=== PATIENT | male | born 1990 | race American Indian/Alaskan Native ===

== ENCOUNTER 2017-05-18 07:17 | Emergency (ER) | payer MEDICAID ==
[2017-05-18 08:21] LABS: Basophils % (Auto) 0.4 % (0.0-1.8); Eosinophils % (Auto) 0.7 % (0.0-4.3); Hematocrit 41.4 % (35.5-45.6); Hemoglobin 13.6 gm/dl (11.8-15.2); Lymphocytes # (Auto) 1.7 K/mm3 (1.2-5.4); Lymphocytes % (Auto) 28.1 % (13.4-35.0); Mean Corpuscular HGB Conc 33 % (32-34); Mean Corpuscular Hemoglobin 29 pg (28-32); Mean Corpuscular Volume 90 fl (84-94); Monocytes # (Auto) 0.3 K/mm3 (0.0-0.8); Monocytes % (Auto) 5.5 % (0.0-7.3); Platelet Count 197 K/mm3 (140-440); Red Blood Count 4.62 M/mm3 (3.65-5.03)
[2017-05-18 08:32] LABS: BUN/Creatinine Ratio 13; Blood Urea Nitrogen 14 mg/dL (9-20); Hemolysis Index 5
[2017-05-18 08:38] LABS: Bilirubin,Urine NEG (Negative); Blood,Urine NEG (Negative); Calcium Oxalate Crystals,Urine 3+; Color,Urine Yellow (Yellow); Mucus,Urine 2+ /HPF; Urobilinogen,Urine < 2.0 mg/dL (<2.0)
[2017-05-18 10:31] LABS: Amphetamine Screen,Urine PRESUMPTIVE NEGATIVE; Benzodiazepines Screen,Urine PRESUMPTIVE NEGATIVE; Methadone Screen,Urine PRESUMPTIVE NEGATIVE; Opiate Screen,Urine PRESUMPTIVE NEGATIVE
[2017-05-18 10:44] LABS: Cannabinoid Screen,Urine PRESUMPTIVE POSITIVE; Cocaine Screen,Urine PRESUMPTIVE POSITIVE
--- NOTE | 2017-05-18 13:23 | Emergency Department Report ---
ED Psych HPI - General Chief Complaint: Medical Clearance Stated Complaint: SUICIDAL Time Seen by Provider: 05/18/17 08:43 Source: patient Mode of arrival: Ambulatory Limitations: No Limitations - History of Present Illness Initial Comments: 27-year-old male with a past medical history of drug abuse, schizophrenia, bipolar, asthma, and HIV presents to the hospital with suicidal and homicidal ideation. Patient is feeling suicidal due to lack of a job, housing, failed relationship, and lack of adequate family support. Patient is mother and then aunt when the last one to 2 year. He was selling drugs and in and out of long term but tired of getting arrested so he quit. Due to his lack of significant income his ex-girlfriend and mother of his child left him taking his child with her. Patient had a job in another state and relocated there temporarily but lost his job due to his lack of access to medical care last insurance and therefore he was unable to be compliant with his psychiatric medication. Positive auditory hallucinations reported. Patient relocated here from [place] approximately 3 days ago and is staying with his cousin. He and his cousin are not getting along and he is having the urge to strangle him. Patient is vague in regards his own suicidal plan. He has been noncompliant with his HIV and psychiatric medication for the past 2-3 months. He does not know his CD4 count but states he had his blood work checked in [facility] last week he cant recall the results but he denies having full blown AIDS. He is requesting to be placed on HIV medication. Patient does not have anywhere else to live or stay in the [place] area at this time and is requesting social work program coordinator/ residential help. Patient admits to IV heroin use and is requesting Suboxone to help with withdrawal. Patient complains of some mild diarrhea but otherwise denies pain, nausea, or vomiting. - Related Data Allergies Allergy/AdvReac Type Severity Reaction Status Date / Time shrimp Allergy Hives Verified 05/18/17 07:29 ED Review of Systems ROS: Stated complaint: SUICIDAL Other details as noted in HPI Comment: All other systems reviewed and negative Other: Constitutional: No fevers chills Eyes: No eye pain visual changes ENT: No ear pain or throat pain Neck: Denies pain Respiratory: Denies cough wheezing shortness of breath Cardiovascular: Denies chest pain, palpitations, syncope GI: As per HPI : Denies dysuria Musculoskeletal: Denies back pain, joint swelling Skin: Denies rash, lesions, erythema Neurologic: Denies headache, numbness, weakness Psychiatric: As per HPI ED Past Medical Hx - Past Medical History Previous Medical History?: Yes Hx Asthma: Yes Hx HIV: Yes Additional medical history: schizophrenia/bipolar - Surgical History Past Surgical History?: No - Social History Smoking Status: Current Some Day Smoker Substance Use Type: Other ED Physical Exam - General Limitations: No Limitations - Other Other exam information: General: No limitations, patient is alert in no acute distress Head exam: Atraumatic, normocephalic Eyes exam: Normal appearance ENT: Moist mucous membrane Neck exam: Normal inspection, full range of motion, no meningismus nontender Respiratory exam: Clear to auscultation bilateral, no wheezes, rales, crackles Cardiovascular: Normal rate and rhythm, normal heart sounds Abdomen: Soft, nondistended, and nontender, with normal bowel sounds, no rebound, or guarding Extremity: Full range of motion normal inspection no deformity Back: Normal Inspection, full range of motion, no tenderness Neurologic: Alert, oriented x3, cranial nerves intact, no motor or sensory deficit Psychiatric: normal affect, normal mood Skin: Warm, dry, intact ED Course Vital Signs 05/18/17 07:23 Temperature 98.4 F Pulse Rate 68 Respiratory 16 Rate Blood Pressure 133/85 O2 Sat by Pulse 100 Oximetry - Reevaluation(s) Reevaluation #1: 05/18/17 15:34 Patient complaining of diarrhea. Imodium ordered and will be ordered when necessary - Consultations Consultation #1: Mental health evaluation initiated. Lucia with mental health states that due to patient's lack of insurance he might only qualify for placement at [facility]. Apparently [facility] cannot extent patient with HIV who are not currently on medication. I explained that we do not restart HIV medication in the ED particularly if patient has been noncompliant. Patient has a normal WBC count without any acute infectious symptoms at this time. I will have her placed a call to the infectious disease doctor service control operator to confirm this 05/18/17 13:22 Case d/w Dr Stanton with ID regarding patient and mental health request for HIV medication. Patient needs outpatient follow-up for adequate treatment and testing for proper HIV medication initiation. This can be performed once psychiatric symptoms are stabilized. There is no emergent indication for ED ID consult at this time. ED Medical Decision Making - Lab Data Result diagrams: 05/18/17 08:06 05/18/17 08:06 Lab Results 05/18/17 05/18/17 05/18/17 Range/Units 08:06 08:06 08:06 WBC (4.5-11.0) K/mm3 RBC (3.65-5.03) M/mm3 Hgb (11.8-15.2) gm/dl Hct (35.5-45.6) % MCV (84-94) fl MCH (28-32) pg MCHC (32-34) % RDW (13.2-15.2) % Plt Count (140-440) K/mm3 Lymph % (Auto) (13.4-35.0) % [place] % (Auto) (0.0-7.3) % Eos % (Auto) (0.0-4.3) % Baso % (Auto) (0.0-1.8) % Lymph # (1.2-5.4) K/mm3 [place] # (0.0-0.8) K/mm3 Eos # (0.0-0.4) K/mm3 Baso # (0.0-0.1) K/mm3 Seg Neutrophils % (40.0-70.0) % Seg Neutrophils # (1.8-7.7) K/mm3 Sodium 140 (137-145) mmol/L Potassium 3.8 (3.6-5.0) mmol/L Chloride 100.9 (98-107) mmol/L Carbon Dioxide 28 (22-30) mmol/L Anion Gap 15 mmol/L BUN 14 (9-20) mg/dL Creatinine 1.1 (0.8-1.5) mg/dL Estimated GFR > 60 ml/min BUN/Creatinine Ratio 13 % Glucose 95 (75-100) mg/dL Calcium 9.0 (8.4-10.2) mg/dL Total Creatine Kinase (55-170) units/L Urine Color (Yellow) Urine Turbidity (Clear) Urine pH (5.0-7.0) Ur Specific Wiley (1.003-1.030) Urine Protein (Negative) mg/dL Urine Glucose (UA) (Negative) mg/dL Urine Ketones (Negative) mg/dL Urine Blood (Negative) Urine Nitrite (Negative) Urine Bilirubin (Negative) Urine Urobilinogen (<2.0) mg/dL Ur Leukocyte Esterase (Negative) Urine WBC (Auto) (0.0-6.0) /HPF Urine RBC (Auto) (0.0-6.0) /HPF Calcium Oxalate Crystal Urine Mucus /HPF Salicylates < 0.3 L (2.8-20.0) mg/dL Urine Opiates Screen Urine Methadone Screen Acetaminophen < 15.0 (10.0-30.0) ug/mL Ur Barbiturates Screen Ur Phencyclidine Scrn Ur Amphetamines Screen U Benzodiazepines Scrn Urine Cocaine Screen U Marijuana (THC) Screen Drugs of Abuse Note Plasma/Serum Alcohol (0-0.07) % 05/18/17 05/18/17 05/18/17 Range/Units 08:06 08:06 08:06 WBC 6.1 (4.5-11.0) K/mm3 RBC 4.62 (3.65-5.03) M/mm3 Hgb 13.6 (11.8-15.2) gm/dl Hct 41.4 (35.5-45.6) % MCV 90 (84-94) fl MCH 29 (28-32) pg MCHC 33 (32-34) % RDW 14.0 (13.2-15.2) % Plt Count 197 (140-440) K/mm3 Lymph % (Auto) 28.1 (13.4-35.0) % [place] % (Auto) 5.5 (0.0-7.3) % Eos % (Auto) 0.7 (0.0-4.3) % Baso % (Auto) 0.4 (0.0-1.8) % Lymph # 1.7 (1.2-5.4) K/mm3 [place] # 0.3 (0.0-0.8) K/mm3 Eos # 0.0 (0.0-0.4) K/mm3 Baso # 0.0 (0.0-0.1) K/mm3 Seg Neutrophils % 65.3 (40.0-70.0) % Seg Neutrophils # 4.0 (1.8-7.7) K/mm3 Sodium (137-145) mmol/L Potassium (3.6-5.0) mmol/L Chloride (98-107) mmol/L Carbon Dioxide (22-30) mmol/L Anion Gap mmol/L BUN (9-20) mg/dL Creatinine (0.8-1.5) mg/dL Estimated GFR ml/min BUN/Creatinine Ratio % Glucose (75-100) mg/dL Calcium (8.4-10.2) mg/dL Total Creatine Kinase 110 (55-170) units/L Urine Color (Yellow) Urine Turbidity (Clear) Urine pH (5.0-7.0) Ur Specific Wiley (1.003-1.030) Urine Protein (Negative) mg/dL Urine Glucose (UA) (Negative) mg/dL Urine Ketones (Negative) mg/dL Urine Blood (Negative) Urine Nitrite (Negative) Urine Bilirubin (Negative) Urine Urobilinogen (<2.0) mg/dL Ur Leukocyte Esterase (Negative) Urine WBC (Auto) (0.0-6.0) /HPF Urine RBC (Auto) (0.0-6.0) /HPF Calcium Oxalate Crystal Urine Mucus /HPF Salicylates (2.8-20.0) mg/dL Urine Opiates Screen Urine Methadone Screen Acetaminophen (10.0-30.0) ug/mL Ur Barbiturates Screen Ur Phencyclidine Scrn Ur Amphetamines Screen U Benzodiazepines Scrn Urine Cocaine Screen U Marijuana (THC) Screen Drugs of Abuse Note Plasma/Serum Alcohol < 0.01 (0-0.07) % 05/18/17 05/18/17 Range/Units 08:20 08:20 WBC (4.5-11.0) K/mm3 RBC (3.65-5.03) M/mm3 Hgb (11.8-15.2) gm/dl Hct (35.5-45.6) % MCV (84-94) fl MCH (28-32) pg MCHC (32-34) % RDW (13.2-15.2) % Plt Count (140-440) K/mm3 Lymph % (Auto) (13.4-35.0) % [place] % (Auto) (0.0-7.3) % Eos % (Auto) (0.0-4.3) % Baso % (Auto) (0.0-1.8) % Lymph # (1.2-5.4) K/mm3 [place] # (0.0-0.8) K/mm3 Eos # (0.0-0.4) K/mm3 Baso # (0.0-0.1) K/mm3 Seg Neutrophils % (40.0-70.0) % Seg Neutrophils # (1.8-7.7) K/mm3 Sodium (137-145) mmol/L Potassium (3.6-5.0) mmol/L Chloride (98-107) mmol/L Carbon Dioxide (22-30) mmol/L Anion Gap mmol/L BUN (9-20) mg/dL Creatinine (0.8-1.5) mg/dL Estimated GFR ml/min BUN/Creatinine Ratio % Glucose (75-100) mg/dL Calcium (8.4-10.2) mg/dL Total Creatine Kinase (55-170) units/L Urine Color Yellow (Yellow) Urine Turbidity Slightly-cloudy (Clear) Urine pH 6.0 (5.0-7.0) Ur Specific Wiley 1.029 (1.003-1.030) Urine Protein 30 mg/dl (Negative) mg/dL Urine Glucose (UA) Neg (Negative) mg/dL Urine Ketones Neg (Negative) mg/dL Urine Blood Neg (Negative) Urine Nitrite Neg (Negative) Urine Bilirubin Neg (Negative) Urine Urobilinogen < 2.0 (<2.0) mg/dL Ur Leukocyte Esterase Neg (Negative) Urine WBC (Auto) 4.0 (0.0-6.0) /HPF Urine RBC (Auto) 10.0 (0.0-6.0) /HPF Calcium Oxalate Crystal 3+ Urine Mucus 2+ /HPF Salicylates (2.8-20.0) mg/dL Urine Opiates Screen Presumptive negative Urine Methadone Screen Presumptive negative Acetaminophen (10.0-30.0) ug/mL Ur Barbiturates Screen Presumptive negative Ur Phencyclidine Scrn Presumptive negative Ur Amphetamines Screen Presumptive negative U Benzodiazepines Scrn Presumptive negative Urine Cocaine Screen Presumptive positive U Marijuana (THC) Screen Presumptive positive Drugs of Abuse Note Disclamer Plasma/Serum Alcohol (0-0.07) % - Medical Decision Making 1013 and transfer form signed. Patient medically cleared for psychiatric transfer. It is a possibility the patient would not be septic given underlying HIV and the fact that he is not currently on HIV medication. Awaiting psychiatric recommendation for initiation of psychiatric medication. He has positive cocaine but no signs of rhabdomyolysis or renal insufficiency. Patient be treated symptomatically with Zofran and Imodium for possible opiate withdrawal symptoms. If psychiatric facility would not accept patient he may need to remain in the ER receiving treatment from consulting psychiatrist until his psychiatric symptoms are stabilized and he is no longer suicidal or homicidal. There is no medical indication for admission at this time. Patient will likely need social work program coordinator consultation as well since he is homeless as well as several other resources for activation of insurance coverage and substance abuse help. Patient will also need outpatient infectious disease follow-up. Critical care attestation.: If time is entered above; I have spent that time in minutes in the direct care of this critically ill patient, excluding procedure time. ED Disposition Clinical Impression: Suicidal ideation, Homicidal ideation, Cocaine abuse, Heroin abuse, Auditory hallucination, Schizophrenia, Bipolar disorder, Homeless, HIV (human immunodeficiency virus infection), Medical clearance for psychiatric admission Disposition: [id number]/[place]-[id number] ANOTHER TYPE HLTHCARE Is pt being admited?: No Condition: Stable Time of Disposition: 15:42 (awaiting acceptance)
[2017-05-18] MEDS ORDERED: IMODIUM PO ONE (15:01)
[2017-05-18] MEDS ORDERED: TYLENOL PO PRN (15:42)
[2017-05-18] MEDS ORDERED: ZOFRAN ODT PO PRN (15:42)
[2017-05-18] MEDS ORDERED: IMODIUM PO PRN (15:42)
[2017-05-18] MEDS ORDERED: ALUM-MAG HYDROX-SIMETH 200-200-20MG/5ML PO PRN (15:42)
[2017-05-18] MEDS ORDERED: BENADRYL PO PRN (21:19)
--- NOTE | 2017-05-19 13:41 | Consultation ---
History of Present Illness - Reason for Consult Consult date: 05/19/17 Reason for consult: Mental Health Evaluation Requesting physician: DAWOOD PEARSON - Chief Complaint Chief complaint: "I am in a bind" - History of Present Psychiatric Illness 27-year-old male with a past medical history of drug abuse and HIV presents to the hospital with suicidal and homicidal ideation. Today the patient is calm and cooperative during the assessment. He stated that nothing is working out for him since he moved to [place] last month. He stated that he have not been compliant with his medications for Bipolar DO. He stated that he took several different types of medications for Bipolar DO in the past. He stated that he has experienced a manic episode in the past (not wanting to sleep for days and irritability). He stated that he experience depression often. He stated that life stressors has been his main issue (failed relationship, lack of finances, and homelessness). He endorses passive SI's without a plan. He denies being homicidal. He denies AVH's. He stated, "I don't know what to do with my like." He stated having erratic sleep and a "okay" appetite. He admitted to recreational drug use, but denies alcohol consumption (etoh). The patient stated that he used Heroin 2 days ago, but his UDS was negative for opiates. Medications and Allergies Allergies Allergy/AdvReac Type Severity Reaction Status Date / Time shrimp Allergy Hives Verified 05/18/17 07:29 Home Medications Medication Instructions Recorded Confirmed Last Taken Type diphenhydrAMINE [Benadryl CAP] 50 mg PO QHS PRN 05/18/17 05/18/17 Unknown History Active Meds: Active Medications Acetaminophen (Tylenol) 650 mg PO Q4HR PRN PRN Reason: Pain MILD(1-3)/Fever >100.5/OROURKE Al Hydrox/Mg Hydrox/Simethicone (Alum-Mag Hydrox-Simeth [id number]/5ml) 30 ml PO Q4HR PRN PRN Reason: Indigestion Diphenhydramine HCl (Benadryl) 50 mg PO QHS PRN PRN Reason: Insomnia Last Admin: 05/18/17 22:00 Dose: 50 mg Loperamide HCl (Imodium) 2 mg PO Q2HR PRN PRN Reason: Diarrhea Ondansetron HCl (Zofran Odt) 4 mg PO Q6HR PRN PRN Reason: Nausea And Vomiting Past psychiatric history - Past Medical History Past Medical History: HIV/AIDS Past Surgical History: No surgical history - past Psychiatric treatment and history Psych: Bipolar psychiatric treatment history: Stated that he see a psychiatrist in [place] for Bipolar DO. He denies a fam psy hx. - Social History Social history: other (Homeless) Mental Status Exam - Vital signs Last Vital Signs Temp 98.9 F 05/19/17 08:39 Pulse 85 05/19/17 08:39 Resp 20 05/19/17 10:13 BP 116/73 05/19/17 08:39 Pulse Ox 100 05/19/17 08:39 - Exam Narrative exam: MSE: Appearance: calm, cooperative Behavior: regular eye contact Speech: regular rate and tone Mood: "depressed" Affect: congruent to mood Thought Process: circumstantial Thought Content: denies HI's and AVH's Motor Activity: lying in bed Cognition: A/O x3 Insight: variable Judgment: variable Results Result Diagrams: 05/18/17 08:06 05/18/17 08:06 All other labs normal. Assessment and Plan Assessment and plan: Impression: Hx of Bipolar DO. Substance Use DO (cocaine). Cannabis Use DO. Today the patient is calm and cooperative during the assessment. The patient endorses passive SI's. He denies any withdrawals symptoms (opioids) DDx: R/O Substance Induced Mood DO Recommendation/Plan: Continue 1013 with placement to inpatient psy services. Start Seroquel 200 mg PO HS for mood and Cogentin 0.5 mg PO HS for EPS prevention. Discussed possible metabolic side effects of Seroquel with patient. Monitor the patient for withdrawals (opioids)
[2017-05-19] MEDS: COGENTIN PO SCH (22:10)
[2017-05-20] MEDS: COGENTIN PO SCH (22:22)
--- NOTE | 2017-05-21 12:13 | Progress Note ---
Subjective - Reason for Consult Consult date: 05/21/17 Reason for consult: Psychiatry Follow-up - Chief Complaint Chief complaint: "I have a open court case" 27-year-old male with a past medical history of drug abuse and HIV presents to the hospital with suicidal and homicidal ideation. Today the patient is calm and cooperative during the assessment. Today the patient is concerned about an open court case in [place] and being homeless. He wanted information about local shelters in the area. He stated that his SI's has "really decreased." He denies HI's and AVH's. He denies any side effects of his medication. Mental Status Exam - Vital signs Last Vital Signs Temp 98.5 F 05/20/17 20:32 Pulse 68 05/20/17 20:32 Resp 16 05/20/17 20:32 BP 107/50 05/20/17 20:32 Pulse Ox 99 05/20/17 20:32 - Exam Narrative exam: MSE: Appearance: calm, cooperative Behavior: regular eye contact Speech: regular rate and tone Mood: "fine" Affect: congruent to mood Thought Process: circumstantial Thought Content: denies HI's and AVH's Motor Activity: lying in bed Cognition: A/O x3 Insight: variable Judgment: variable Assessment and Plan Impression: Hx of Bipolar DO. Substance Use DO (cocaine). Cannabis Use DO. Today the patient is calm and cooperative during the assessment. He denies any withdrawals symptoms (opioids) DDx: R/O Substance Induced Mood DO Recommendation/Plan: Continue 1013 with placement to inpatient psy services. Continue Seroquel 200 mg PO HS for mood and Cogentin 0.5 mg PO HS for EPS prevention. Discussed possible metabolic side effects of Seroquel with patient. Monitor the patient for withdrawals (opioids)
[2017-05-21] MEDS: COGENTIN PO SCH (22:09)
--- NOTE | 2017-05-21 22:36 | Progress Note ---
Subjective - Reason for Consult Consult date: 05/20/17 Reason for consult: Psychiatric Follow-up Evaluation - Chief Complaint Chief complaint: "I feel better" Patient is a 27-year-old male with a past medical history of drug abuse and HIV. He presents to the hospital with suicidal and homicidal ideation. Prior to hospitalization patient had been non-compliant with medication for 1-2 months. Today, he presents calm but anxious. Initially patient was homicidal towards cousin. Currently, he denies. Patient expressed that he would like for his cousin to purchase him a bus ticket to [place], [place] to address open court case. Currently, he is compliant with medications. He denies side effects to medications. He denies SI/HI, A/VH, and delusions. Mental Status Exam - Vital signs Last Vital Signs Temp 98.5 F 05/20/17 20:32 Pulse 68 05/20/17 20:32 Resp 18 05/21/17 14:20 BP 107/50 05/20/17 20:32 Pulse Ox 98 05/21/17 14:20 - Exam Narrative exam: General Appearance: Casually dressed- hospital gown Attitude/Behavior: cooperative but anxious Sensorium: Clear Orientation: alert and oriented to person, place, time, date, and situation Psychomotor Musculoskeletal Activity: WNL. No abnormalities noted Mood: "I'm better." Affect: Appropriate Speech/Language: Normal rate and Tones Thought Process: Circumstantial Thought Content: Reality Oriented Perception: WNL. Intact. Concentration/Attention: Impaired concentration, impaired attention Memory: Intact. Recall events. Suicidal Ideation/Plan: Patient denies. Homicidal Ideation/Plan: Patient denies. Assessment and Plan Blaine is a 27 year old male seen today for a psychiatric follow-up evluation. He presents cooperative but anxious. He denies SI/HI/A/VH, and delusions. Plan: 1. Continue medications. 2. Provide community resources upon discharge. 3. Reassess on 05/21/17 for follow-up evaluation.
[2017-05-22 13:01] VITALS: BP 119/63
--- NOTE | 2017-05-22 13:38 | Progress Note ---
Subjective - Reason for Consult Consult date: 05/22/17 Reason for consult: Psycchiatry Follow-up - Chief Complaint Chief complaint: "Will I be leaving" 27-year-old male with a past medical history of drug abuse and HIV presents to the hospital with suicidal and homicidal ideation. Today the patient is calm and cooperative during the assessment. He stated that he will follow up with outpatient psy services when discharged. He stated being homeless and will need assistance with placement when discharged. He denies SI/HI's and AVH's. He denies any side effects of his medications. Mental Status Exam - Vital signs Last Vital Signs Temp 99 F 05/22/17 09:40 Pulse 69 05/22/17 09:40 Resp 18 05/22/17 13:01 BP 119/63 05/22/17 09:40 Pulse Ox 98 05/22/17 09:40 - Exam Narrative exam: MSE: Appearance: calm, cooperative Behavior: regular eye contact Speech: regular rate and tone Mood: "fine" Affect: congruent to mood Thought Process: linear Thought Content: denies SI/HI's and AVH's Motor Activity: lying in bed Cognition: A/O x3 Insight: appropriate Judgment: appropriate Assessment and Plan Impression: Hx of Bipolar DO. Substance Use DO (cocaine). Cannabis Use DO. Today the patient is calm and cooperative during the assessment. He denies any withdrawals symptoms (opioids) DDx: R/O Substance Induced Mood DO Recommendation/Plan: Rescind 1013. Continue Seroquel 200 mg PO HS for mood and Cogentin 0.5 mg PO HS for EPS prevention. Discussed possible metabolic side effects of Seroquel with patient. Discussed the importance of abstaining from recreational drug use. The patient was given outpatient psy/rehab services for [facility].
--- NOTE | 2017-05-22 15:35 | Emergency Department Report ---
Blank Doc - Documentation Documentation: Patient has been cleared by mental health and psychiatry. The patient is 1013 has been rescinded. Patient was medically cleared prior to mental health evaluation. Patient is stable for discharge home and will be given community resources
== END 2017-05-22 16:57 | disposition other institution (70) ==
LOC: ED 07:17 → EEVIPCON 07:17 → ED 05-22 16:57
DX: F32.9 Major depressive disorder, single episode, unspecified (principal); F20.9 Schizophrenia, unspecified; F12.10 Cannabis abuse, uncomplicated; F14.10 Cocaine abuse, uncomplicated; J45.909 Unspecified asthma, uncomplicated; F17.200 Nicotine dependence, unspecified, uncomplicated; Z79.899 Other long term (current) drug therapy; Z59.0 Homelessness; Z91.013 Allergy to seafood
CPT/HCPCS: 36415; 80048; 80307; 81001; 82550; 85025; 99283; G0480; 80320